=== PATIENT | male | born 1930 | race Caucasian/White ===

== ENCOUNTER 2016-04-06 15:00 | Outpatient (CLI) | payer BC, MEDICARE | END 2016-04-06 15:01 | disposition home or self-care (01) | DX: I48.0 Paroxysmal atrial fibrillation (principal) ==

== ENCOUNTER 2016-04-19 08:00 | Outpatient (CLI) | payer BC, MEDICARE | END 2016-04-19 08:01 | disposition home or self-care (01) | DX: I48.0 Paroxysmal atrial fibrillation (principal) ==

== ENCOUNTER 2016-05-04 15:22 | Outpatient (CLI) | payer BC, MEDICARE | END 2016-05-04 15:23 | disposition home or self-care (01) | DX: I48.0 Paroxysmal atrial fibrillation (principal) ==

== ENCOUNTER 2016-05-25 08:00 | Outpatient (CLI) | payer BC, MEDICARE | END 2016-05-25 08:01 | disposition home or self-care (01) | DX: I48.0 Paroxysmal atrial fibrillation (principal) ==

== ENCOUNTER 2016-06-01 12:41 | Outpatient (CLI) | payer BC, MEDICARE | END 2016-06-01 12:42 | disposition home or self-care (01) | DX: I10 Essential (primary) hypertension (principal); I42.7 Cardiomyopathy due to drug and external agent ==

== ENCOUNTER 2016-06-01 13:24 | Outpatient (CLI) | payer BC, MEDICARE | END 2016-06-01 13:25 | disposition home or self-care (01) | DX: J43.9 Emphysema, unspecified (principal); I51.7 Cardiomegaly; I10 Essential (primary) hypertension; I42.7 Cardiomyopathy due to drug and external agent ==

== ENCOUNTER 2016-06-02 13:37 | Outpatient (CLI) | payer BC, MEDICARE | END 2016-06-02 13:38 | disposition home or self-care (01) | DX: R17 Unspecified jaundice (principal); I48.0 Paroxysmal atrial fibrillation ==

== ENCOUNTER 2016-06-05 10:58 | Outpatient (CLI) | payer BC, MEDICARE | END 2016-06-05 10:59 | disposition home or self-care (01) | DX: K82.8 Other specified diseases of gallbladder (principal); R17 Unspecified jaundice ==

== ENCOUNTER 2016-06-22 12:35 | Outpatient (CLI) | payer BC, MEDICARE | END 2016-06-22 12:36 | disposition home or self-care (01) | DX: I48.0 Paroxysmal atrial fibrillation (principal); I10 Essential (primary) hypertension ==

== ENCOUNTER 2016-06-29 09:22 | Outpatient (CLI) | payer BC, MEDICARE | END 2016-06-29 09:23 | disposition home or self-care (01) | DX: I48.0 Paroxysmal atrial fibrillation (principal) ==

== ENCOUNTER 2016-07-07 09:34 | Outpatient (CLI) | payer BC, MEDICARE | END 2016-07-07 09:35 | disposition home or self-care (01) | DX: I48.0 Paroxysmal atrial fibrillation (principal) ==

== ENCOUNTER 2016-07-18 09:48 | Outpatient (CLI) | payer BC, MEDICARE | END 2016-07-18 09:49 | disposition home or self-care (01) | DX: I48.0 Paroxysmal atrial fibrillation (principal) ==

== ENCOUNTER 2016-08-11 09:29 | Outpatient (CLI) | payer BC, MEDICARE | END 2016-08-11 09:30 | disposition home or self-care (01) | LOC: LAB.F 09:29 | PROVIDERS: ATTEND Internal Medicine Cardiovascular Disease | DX: I48.0 Paroxysmal atrial fibrillation (principal) | CPT/HCPCS: 85610 ==

== ENCOUNTER 2016-08-29 15:02 | Outpatient (CLI) | payer BC, MEDICARE | END 2016-08-29 15:03 | disposition home or self-care (01) | LOC: LAB.F 15:02 | PROVIDERS: ATTEND Internal Medicine Cardiovascular Disease | DX: I48.0 Paroxysmal atrial fibrillation (principal) | CPT/HCPCS: 85610 ==

== ENCOUNTER 2016-09-14 12:36 | Outpatient (CLI) | payer BC, MEDICARE | END 2016-09-14 12:37 | disposition home or self-care (01) | LOC: LAB.F 12:36 | PROVIDERS: ATTEND Internal Medicine Cardiovascular Disease | DX: I48.0 Paroxysmal atrial fibrillation (principal) | CPT/HCPCS: 85610 ==

== ENCOUNTER 2016-09-28 13:00 | Outpatient (CLI) | payer BC, MEDICARE | END 2016-09-28 13:01 | disposition home or self-care (01) | LOC: LAB.F 13:00 | PROVIDERS: ATTEND Physician Assistant | DX: I48.0 Paroxysmal atrial fibrillation (principal); I25.10 Atherosclerotic heart disease of native coronary artery without angina pectoris; I34.8 Other nonrheumatic mitral valve disorders | CPT/HCPCS: 85610 ==

== ENCOUNTER 2016-10-23 14:43 | Outpatient (CLI) | payer BC, MEDICARE | END 2016-10-23 14:44 | disposition home or self-care (01) | LOC: LAB.F 14:43 | PROVIDERS: ATTEND Physician Assistant | DX: I48.0 Paroxysmal atrial fibrillation (principal); I25.10 Atherosclerotic heart disease of native coronary artery without angina pectoris; I34.8 Other nonrheumatic mitral valve disorders | CPT/HCPCS: 85610 ==

== ENCOUNTER 2016-11-09 12:53 | Outpatient (CLI) | payer BC, MEDICARE | END 2016-11-09 12:54 | disposition home or self-care (01) | LOC: LAB.F 12:53 | PROVIDERS: ATTEND Physician Assistant | DX: I48.0 Paroxysmal atrial fibrillation (principal); I25.10 Atherosclerotic heart disease of native coronary artery without angina pectoris; I34.0 Nonrheumatic mitral (valve) insufficiency | CPT/HCPCS: 85610 ==

== ENCOUNTER 2016-12-05 11:11 | Outpatient (CLI) | payer BC, MEDICARE | END 2016-12-05 11:12 | disposition home or self-care (01) | LOC: LAB.F 11:11 | PROVIDERS: ATTEND Physician Assistant | DX: I48.0 Paroxysmal atrial fibrillation (principal); I25.10 Atherosclerotic heart disease of native coronary artery without angina pectoris; I34.8 Other nonrheumatic mitral valve disorders | CPT/HCPCS: 85610 ==

== ENCOUNTER 2016-12-11 17:16 | Outpatient (CLI) | payer BC, MEDICARE ==
--- NOTE | 2016-12-12 08:28 | XRAY Report ---
TWO-VIEW CHEST: 12/11/2016 CLINICAL INDICATION: Cough, shortness of breath. COMPARISON: 06/01/2016 FINDINGS: Frontal and lateral views of the chest demonstrate changes of previous cardiac surgery. T he cardiac silhouette is not enlarged. Calcified granulomas are present. The lungs are hyperinflate d, compatible with COPD. No new consolidation, effusion, or pneumothorax is evident. IMPRESSION: COPD AND POSTOPERATIVE CHANGES. NO EVIDENCE OF ACUTE CARDIOPULMONARY DISEASE. JOB #: [id number] EXT JOB #:[id number]
== END 2016-12-11 17:17 | disposition home or self-care (01) ==
LOC: DI 17:16
PROVIDERS: ATTEND Nurse Practitioner Family
DX: J44.9 Chronic obstructive pulmonary disease, unspecified (principal)
CPT/HCPCS: 71020

== ENCOUNTER 2016-12-27 13:25 | Outpatient (CLI) | payer BC, MEDICARE | END 2016-12-27 13:26 | disposition home or self-care (01) | LOC: LAB.F 13:25 | PROVIDERS: ATTEND Physician Assistant | DX: I48.0 Paroxysmal atrial fibrillation (principal); I25.10 Atherosclerotic heart disease of native coronary artery without angina pectoris; I34.8 Other nonrheumatic mitral valve disorders | CPT/HCPCS: 85610 ==

== ENCOUNTER 2017-01-02 10:49 | Outpatient (CLI) | payer BC, MEDICARE | END 2017-01-02 10:50 | disposition home or self-care (01) | LOC: LAB.F 10:49 | PROVIDERS: ATTEND Physician Assistant | DX: I48.0 Paroxysmal atrial fibrillation (principal); I25.10 Atherosclerotic heart disease of native coronary artery without angina pectoris; I34.8 Other nonrheumatic mitral valve disorders | CPT/HCPCS: 85610 ==

== ENCOUNTER 2017-01-11 14:47 | Outpatient (CLI) | payer MEDICARE, BC | END 2017-01-11 14:48 | disposition home or self-care (01) | LOC: LAB.F 14:47 | PROVIDERS: ATTEND Physician Assistant | DX: I48.0 Paroxysmal atrial fibrillation (principal); I25.10 Atherosclerotic heart disease of native coronary artery without angina pectoris; I34.8 Other nonrheumatic mitral valve disorders | CPT/HCPCS: 85610 ==

== ENCOUNTER 2017-01-31 12:29 | Outpatient (CLI) | payer BC, MEDICARE | END 2017-01-31 12:30 | disposition home or self-care (01) | LOC: LAB.F 12:29 | PROVIDERS: ATTEND Physician Assistant | DX: I48.0 Paroxysmal atrial fibrillation (principal); I25.10 Atherosclerotic heart disease of native coronary artery without angina pectoris; I34.8 Other nonrheumatic mitral valve disorders | CPT/HCPCS: 85610 ==

== ENCOUNTER 2017-02-15 13:02 | Outpatient (CLI) | payer BC, MEDICARE | END 2017-02-15 13:03 | disposition home or self-care (01) | LOC: LAB.F 13:02 | PROVIDERS: ATTEND Physician Assistant | DX: I48.0 Paroxysmal atrial fibrillation (principal); I25.10 Atherosclerotic heart disease of native coronary artery without angina pectoris; I34.8 Other nonrheumatic mitral valve disorders | CPT/HCPCS: 85610 ==

== ENCOUNTER 2017-03-08 14:09 | Outpatient (CLI) | payer BC, MEDICARE | END 2017-03-08 14:10 | disposition home or self-care (01) | LOC: LAB.F 14:09 | PROVIDERS: ATTEND Physician Assistant | DX: I48.0 Paroxysmal atrial fibrillation (principal); I25.10 Atherosclerotic heart disease of native coronary artery without angina pectoris; I34.8 Other nonrheumatic mitral valve disorders | CPT/HCPCS: 85610 ==

== ENCOUNTER 2017-03-13 13:29 | Outpatient (CLI) | payer BC, MEDICARE | END 2017-03-13 13:30 | disposition home or self-care (01) | LOC: LAB.F 13:29 | PROVIDERS: ATTEND Physician Assistant | DX: I48.0 Paroxysmal atrial fibrillation (principal); I25.10 Atherosclerotic heart disease of native coronary artery without angina pectoris; I34.8 Other nonrheumatic mitral valve disorders | CPT/HCPCS: 85610 ==

== ENCOUNTER 2017-03-22 14:10 | Outpatient (CLI) | payer BC, MEDICARE | END 2017-03-22 14:11 | disposition home or self-care (01) | LOC: LAB.F 14:10 | PROVIDERS: ATTEND Physician Assistant | DX: I48.0 Paroxysmal atrial fibrillation (principal); I25.10 Atherosclerotic heart disease of native coronary artery without angina pectoris; I34.8 Other nonrheumatic mitral valve disorders | CPT/HCPCS: 85610 ==

== ENCOUNTER 2017-04-06 09:22 | Outpatient (CLI) | payer BC, MEDICARE | END 2017-04-06 09:23 | disposition home or self-care (01) | LOC: LAB.F 09:22 | PROVIDERS: ATTEND Physician Assistant | DX: I48.0 Paroxysmal atrial fibrillation (principal); I25.10 Atherosclerotic heart disease of native coronary artery without angina pectoris; I34.8 Other nonrheumatic mitral valve disorders | CPT/HCPCS: 85610 ==

== ENCOUNTER 2017-04-12 10:09 | Outpatient (CLI) | payer BC, MEDICARE | END 2017-04-12 10:10 | disposition home or self-care (01) | LOC: LAB.F 10:09 | PROVIDERS: ATTEND Physician Assistant | DX: I48.0 Paroxysmal atrial fibrillation (principal); I25.10 Atherosclerotic heart disease of native coronary artery without angina pectoris; I34.8 Other nonrheumatic mitral valve disorders | CPT/HCPCS: 85610 ==

== ENCOUNTER 2017-04-12 14:57 | Outpatient (CLI) | payer BC, MEDICARE ==
--- NOTE | 2017-04-13 10:41 | XRAY Report ---
DATE OF SERVICE: 04/12/2017 THREE VIEW LEFT FOOT: 04/12/2017 CLINICAL INDICATION: Pain, swelling. FINDINGS: AP, lateral, and oblique views of the left foot demonstrate plantar calcaneal spurring. Soft tissue swelling is present, but there is no evidence of acute fracture or dislocation. No radiopaque foreign body is seen in the soft tissues. IMPRESSION: MILD DEGENERATIVE CHANGES. TD: 04/13/2017 11:40
== END 2017-04-12 14:58 | disposition home or self-care (01) ==
LOC: DI.S 14:57
PROVIDERS: ATTEND Physician Assistant
DX: M19.072 Primary osteoarthritis, left ankle and foot (principal)
CPT/HCPCS: 85610

== ENCOUNTER 2017-04-30 15:18 | Observation (INO) | payer BC, MEDICARE ==
[2017-04-30] MEDS ORDERED: SODIUM CHLORIDE 0.9% 1,000 ML IV ONE ×3 (15:46→16:21)
[2017-04-30 16:10] LABS: BASOPHILS % (AUTO) 0.3 %; HGB - HEMOGLOBIN 13.9 g/dL (14.0-18.0); LYMPHOCYTES % (AUTO) 6.3 %; MEAN CORPUSCULAR HEMOGLOBIN 33.9 pg (27.0-31.0); MEAN CORPUSCULAR VOLUME 102.7 fL (80.0-94.0); MEAN PLATELET VOLUME 7.7 fL (7.4-11.4); NEUTROPHILS # (AUTO) 14.3 10^3/uL (1.5-6.6); NEUTROPHILS % (AUTO) 87.4 %; PLT - PLATELET COUNT 214 10^3/uL (130-450); RED BLOOD COUNT 4.09 10^6/uL (4.70-6.10); RED CELL DISTRIBUTION WIDTH 14.4 % (12.0-15.0); WHITE BLOOD COUNT 16.3 x10^3/uL (4.8-10.8)
[2017-04-30 16:22] LABS: ALBUMIN 3.6 g/dL (3.2-5.5); ALBUMIN/GLOBULIN RATIO 1.3 (1.0-2.2); BILIRUBIN,TOTAL 1.1 mg/dL (0.2-1.0); CALCIUM 8.7 mg/dL (8.5-10.3); CREATININE 2.2 mg/dL (0.6-1.2); TOTAL PROTEIN 6.3 g/dL (6.7-8.2)
--- NOTE | 2017-04-30 16:24 | ED Physician Documentation ---
PD HPI FEVER - Stated complaint Stated Complaint: FEVER - Chief complaint Chief Complaint: Fever - History obtained from History obtained from: Patient, Family - History of Present Illness Timing - onset: Today Timing duration: Days (1) Timing details: Abrupt onset Pain level max: 0 Pain level now: 0 Associated symptoms: Chills, Rigors. No: Nasal congestion, Rhinorrhea, Sore throat, Dry cough, Hemoptysis, Chest pain, Dyspnea, Abdominal pain, NVD, Urinary symptoms Contributing factors: Other (received influenza and pneumonia shots this year). No: Sick contact, Immunocompromised, Unimmunized Similar symptoms before: Diagnosis (had a CBD stone a few years ago with high fever) Recently seen: Not recently seen Review of Systems Ten Systems: 10 systems reviewed and negative Constitutional: reports: Fever, Chills Ears: denies: Ear pain Nose: denies: Rhinorrhea / runny nose, Congestion Throat: denies: Sore throat Cardiac: denies: Chest pain / pressure Respiratory: denies: Dyspnea, Cough, Hemoptysis, Wheezing GI: denies: Abdominal Pain, Nausea, Vomiting, Diarrhea : denies: Dysuria Skin: denies: Rash Musculoskeletal: denies: Neck pain, Back pain Neurologic: denies: Generalized weakness, Focal weakness, Numbness, Confused, Altered mental status, Headache PD PAST MEDICAL HISTORY - Past Medical History Past Medical History: Yes Cardiovascular: PA, Valve disorder GI: Cholelithiasis - Past Surgical History Past Surgical History: Yes General: Appendectomy Cardiovascular: Coronary stent, Valve replacement, Angioplasty - Present Medications Home Medications: Ambulatory Orders Medication Instructions Recorded Confirmed Aspirin [Aspir 81] 81 mg PO DAILY 07/29/13 04/30/17 Benzonatate [Tessalon Perle] 100 mg PO Q6HR PRN 07/29/13 04/30/17 Carvedilol [Coreg] 6.25 mg PO BID 07/29/13 04/30/17 Dronedarone HCl [Multaq] 400 mg PO BID 07/29/13 04/30/17 Furosemide [Lasix] 20 mg PO DAILY 07/29/13 04/30/17 Isosorbide Mononitrate ER [Imdur] 30 mg PO DAILY 07/29/13 04/30/17 Potassium Chloride [Micro-K] 20 meq PO DAILY 07/29/13 04/30/17 Warfarin Sodium [Coumadin] 2 mg PO DAILY PM 07/29/13 04/30/17 Allopurinol 100 mg PO DAILY PM 04/30/17 04/30/17 Warfarin Sodium [Coumadin] 3 mg PO DAILY PM 04/30/17 04/30/17 busPIRone [Buspar] 5 mg PO BID 04/30/17 04/30/17 - Allergies Allergies/Adverse Reactions: Allergies Allergy/AdvReac Type Severity Reaction Status Date / Time Benzodiazepines Allergy Unknown Verified 04/30/17 15:39 levofloxacin Allergy Hives Verified 07/29/13 15:04 zolpidem tartrate * Allergy Hallucinati Verified 07/29/13 15:04 [From Ambien] ons - Social History Does the pt smoke?: No Smoking Status: Never smoker Does the pt drink ETOH?: No Does the pt have substance abuse?: No - Immunizations Immunizations are current?: Yes - POLST Patient has POLST: No PD ED PE NORMAL - Vitals Vital signs reviewed: Yes - General General: Alert and oriented X 3, No acute distress, Well developed/nourished - HEENT HEENT: PERRL, Ears normal, Moist mucous membranes, Pharynx benign - Neck Neck: Supple, no meningeal sign - Cardiac Cardiac: RRR, Strong equal pulses - Respiratory Respiratory: No respiratory distress, Clear bilaterally - Abdomen Abdomen: Soft, Non tender, Non distended - Back Back: No CVA TTP, No spinal TTP - Derm Derm: Warm and dry, No rash - Extremities Extremities: No edema, No calf tenderness / cord - Neuro Neuro: Alert and oriented X 3 - Psych Psych: Normal mood, Normal affect Results - Vitals Vitals: Vital Signs - 24 hr 04/30/17 04/30/17 04/30/17 15:29 16:07 16:35 Temperature 36.9 C Heart Rate 68 75 69 Heart Rate [ Standing] Respiratory 20 18 16 Rate Blood Pressure 91/45 L 91/54 L 99/60 Blood Pressure [Standing] O2 Saturation 97 95 97 04/30/17 04/30/17 04/30/17 16:59 17:50 17:57 Temperature Heart Rate 67 66 Heart Rate [ 84 Standing] Respiratory 17 16 Rate Blood Pressure 104/67 105/59 L Blood Pressure 109/76 [Standing] O2 Saturation 97 97 04/30/17 19:06 Temperature 36.6 C Heart Rate 68 Heart Rate [ Standing] Respiratory 16 Rate Blood Pressure 118/67 Blood Pressure [Standing] O2 Saturation 98 Oxygen O2 Source Room air - Labs Labs: Laboratory Tests 04/30/17 04/30/17 04/30/17 15:50 15:50 15:50 WBC 16.3 H RBC 4.09 L Hgb 13.9 L Hct 42.0 MCV 102.7 H MCH 33.9 H MCHC 33.0 RDW 14.4 Plt Count 214 MPV 7.7 Neut # 14.3 H Lymph # 1.0 L [place] # 1.0 Eos # 0.0 Baso # 0.0 Absolute Nucleated RBC 0.00 Nucleated RBC % 0.0 PT INR Sodium 135 Potassium 4.8 Chloride 100 L Carbon Dioxide 23 Anion Gap 12.0 BUN 31 H Creatinine 2.2 H Estimated GFR (MDRD) 28 L Glucose 136 H Lactic Acid 2.0 Uric Acid Calcium 8.7 Total Bilirubin 1.1 H AST 23 ALT 20 Alkaline Phosphatase 68 Total Protein 6.3 L Albumin 3.6 Globulin 2.7 Albumin/Globulin Ratio 1.3 Lipase 18 L Urine Color Urine Clarity Urine pH Ur Specific [place] Urine Protein Urine Glucose (UA) Urine Ketones Urine Occult Blood Urine Nitrite Urine Bilirubin Urine Urobilinogen Ur Leukocyte Esterase Ur Microscopic Review Urine Culture Comments Influenza A (Rapid) Influenza B (Rapid) Influenza Types A,B Ag 04/30/17 04/30/17 04/30/17 15:50 15:50 16:35 WBC RBC Hgb Hct MCV MCH MCHC RDW Plt Count MPV Neut # Lymph # [place] # Eos # Baso # Absolute Nucleated RBC Nucleated RBC % PT 23.4 H INR 2.1 H Sodium Potassium Chloride Carbon Dioxide Anion Gap BUN Creatinine Estimated GFR (MDRD) Glucose Lactic Acid Uric Acid 7.4 H Calcium Total Bilirubin AST ALT Alkaline Phosphatase Total Protein Albumin Globulin Albumin/Globulin Ratio Lipase Urine Color Urine Clarity Urine pH Ur Specific [place] Urine Protein Urine Glucose (UA) Urine Ketones Urine Occult Blood Urine Nitrite Urine Bilirubin Urine Urobilinogen Ur Leukocyte Esterase Ur Microscopic Review Urine Culture Comments Influenza A (Rapid) Negative Influenza B (Rapid) Negative Influenza Types A,B Ag - 04/30/17 17:15 WBC RBC Hgb Hct MCV MCH MCHC RDW Plt Count MPV Neut # Lymph # [place] # Eos # Baso # Absolute Nucleated RBC Nucleated RBC % PT INR Sodium Potassium Chloride Carbon Dioxide Anion Gap BUN Creatinine Estimated GFR (MDRD) Glucose Lactic Acid Uric Acid Calcium Total Bilirubin AST ALT Alkaline Phosphatase Total Protein Albumin Globulin Albumin/Globulin Ratio Lipase Urine Color YELLOW Urine Clarity CLEAR Urine pH 6.0 Ur Specific [place] 1.015 Urine Protein NEGATIVE Urine Glucose (UA) NEGATIVE Urine Ketones NEGATIVE Urine Occult Blood NEGATIVE Urine Nitrite NEGATIVE Urine Bilirubin NEGATIVE Urine Urobilinogen 0.2 (NORMAL) Ur Leukocyte Esterase NEGATIVE Ur Microscopic Review NOT INDICATED Urine Culture Comments NOT INDICATED Influenza A (Rapid) Influenza B (Rapid) Influenza Types A,B Ag - Rads (name of study) cxr Radiology: Prelim report reviewed, EMP read contemporaneously, See rad report ( No acute disease) PD MEDICAL DECISION MAKING - ED course Complexity details: reviewed results, re-evaluated patient, considered differential, d/w patient, d/w family, d/w senior professional services consultant ED course: Patient is an 86-year-old male who presents to the emergency department with a fever today at home, this is accompanied by significant hypotension in the emergency department. This was fluid responsive. Significant leukocytosis and borderline high lactate. Blood cultures were drawn. He initially wanted to leave AGAINST MEDICAL ADVICE therefore Rocephin and vancomycin were used. He then changed his mind and decided he would stay in the hospital for observation. We will continue IV fluids and antibiotics. Unclear etiology of his symptoms, possible viral infection? Possible septicemia? Discussed the case with the hospitalist who accepts. This document was made in part using voice recognition software. While efforts are made to proofread this document, sound alike and grammatical errors may occur. Departure - Departure Disposition: ED Place in Observation Clinical Impression: Fever Qualifiers: Fever type: unspecified Qualified Code(s): R50.9 - Fever, unspecified Hypotension Qualifiers: Hypotension type: unspecified hypotension type Qualified Code(s): I95.9 - Hypotension, unspecified Condition: Stable Discharge Date/Time: 04/30/17 19:55
--- NOTE | 2017-04-30 17:11 | XRAY Preliminary Report ---
Exam: XR CHEST 2 VIEW X-RAY IMPRESSION: 1. Moderate cardiomegaly. 2. Chronic lung disease. [facility] SITE ID: [id number]
--- NOTE | 2017-04-30 17:20 | XRAY Report ---
EXAM: CHEST RADIOGRAPHY EXAM DATE: 04/30/2017 04:56 PM. CLINICAL HISTORY: Fever. COMPARISON: 12/11/2016. TECHNIQUE: 2 views. FINDINGS: Lungs/Pleura: Overexpanded. No consolidation, effusion, vascular congestion nor pneumothorax. Small c alcified granulomata. Mediastinum: Prior sternotomy. Stable moderate cardiomegaly. No adenopathy. Other: None. IMPRESSION: 1. Moderate cardiomegaly. 2. Chronic lung disease. [facility] Referring Provider Line: [phone] SITE ID: [id number]
[2017-04-30 17:49] LABS: BILIRUBIN,URINE NEGATIVE (NEGATIVE); CLARITY,URINE CLEAR (CLEAR); GLUCOSE, URINE (UA) NEGATIVE (NEGATIVE); KETONES,URINE (UA) NEGATIVE (NEGATIVE); LEUKOCYTE ESTERASE, URINE NEGATIVE (NEGATIVE); NITRITE,URINE NEGATIVE (NEGATIVE); OCCULT BLOOD,URINE NEGATIVE (NEGATIVE); PROTEIN,URINE NEGATIVE (NEGATIVE); UROBILINOGEN,URINE 0.2 (NORMAL) E.U./dL (NORMAL)
[2017-04-30 18:07] LABS: INR 2.1 (0.8-1.2); PT - PROTHROMBIN TIME 23.4 secs (9.9-12.6)
[2017-04-30] MEDS ORDERED: cefTRIAXone 1 GM VIAL IVP STA (18:27)
[2017-04-30] MEDS ORDERED: VANCOMYCIN INJ 1 GM in SODIUM CHLORIDE 0.9% 250 ML IV STA (18:27)
[2017-04-30] MEDS ORDERED: ACETAMINOPHEN 325 MG TABLET PO PRN (19:47)
[2017-04-30] MEDS ORDERED: HYDROcod/ACETAM 5/325 MG TABLET PO PRN (19:47)
[2017-04-30] MEDS ORDERED: SODIUM CHLORIDE FLUSH 0.9% 10 ML SYRINGE IVP PRN (19:47)
[2017-04-30] MEDS ORDERED: ONDANSETRON 4 MG/2 ML VIAL IVP PRN (19:47)
[2017-04-30] MEDS ORDERED: BENZONATATE 100 MG CAPSULE PO PRN (22:04)
[2017-04-30] MEDS ORDERED: NON FORMULARY MED (Dronedarone Hcl [Multaq] 400 MG) PO SCH (22:15)
[2017-04-30] MEDS: SODIUM CHLORIDE FLUSH 0.9% 10 ML SYRINGE IVP SCH (22:19)
[2017-04-30] MEDS: CARVEDILOL 3.125 MG TABLET PO SCH (22:43)
[2017-04-30] MEDS: busPIRone 5 MG TABLET PO SCH (22:43)
--- NOTE | 2017-04-30 22:58 | Ultrasound Report ---
EXAM: LEFT LOWER EXTREMITY VENOUS ULTRASOUND EXAM DATE: 04/30/2017 10:46 PM. CLINICAL HISTORY: Dvt. Left leg swelling. COMPARISON: None. TECHNIQUE: Real-time sonographic vascular imaging was performed by the collet driller through the lower extremity utilizing both color-flow and Doppler spectral analysis. Multiple vendor representatives static gasper ges were saved for review. FINDINGS: Common Femoral Vein (CFV): Normal. CFV-GSV Junction: Normal. Profunda Femoral Vein (PFV): Normal. Femoral Vein (FV) Prox: Normal. Femoral Vein (FV) Mid: Normal. Femoral Vein (FV) Dist: Normal. Popliteal Vein: Normal. Posterior Tibial Veins: Normal. Peroneal Veins: Normal. Small pocket of fluid seen at the left lateral knee, could represent a knee joint effusion, measures 1.2 x 0.7 x 0.8 cm. IMPRESSION: No evidence for deep venous thrombosis. Small pocket of fluid seen at the left lateral kn ee, could represent a knee joint effusion, measures 1.2 x 0.7 x 0.8 cm. ELIZABETH Referring Provider Line: [phone] SITE ID: [id number]
--- NOTE | 2017-04-30 22:58 | Ultrasound Preliminary Report ---
Exam: US DUPLEX EXT VEINS LEFT IMPRESSION: No evidence for deep venous thrombosis. Small pocket of fluid seen at the left lateral kn ee, could represent a knee joint effusion, measures 1.2 x 0.7 x 0.8 cm. [facility] SITE ID: [id number]
[2017-04-30] MEDS ORDERED: ALLOPURINOL 100 MG TABLET PO SCH (23:00)
[2017-04-30] MEDS ORDERED: WARFARIN 1 MG TABLET PO SCH (23:02)
[2017-04-30] MEDS ORDERED: WARFARIN SODIUM 3 MG PO SCH (23:03)
--- NOTE | 2017-05-01 04:16 | HISTORY & PHYSICAL EXAMINATION ---
DATE OF SERVICE: 04/30/2017 Physician: Nemo Florian MD PRIMARY CARE PHYSICIAN: Becca Palmer CHIEF COMPLAINT: Fever and rigors. SOURCE OF HISTORY: The patient preferred that his , Dhara, provided history. Additional details obtained reviewing medical record and getting sign out from the ER. HISTORY OF PRESENT ILLNESS: The patient is an 86-year-old, white male with past medical history of mitral valve replacement with bioprosthetic valve, with history of atrial fibrillation on Coumadin anticoagulation, with history of chronic renal insufficiency, hypertension, gout and dyslipidemia. He was in his usual state of health up to the morning of April 30, at which time he developed rigors and high fever. His fever was 102 at home. He felt somewhat acutely ill, but other than the fever, feeling of generalized illness and rigors, he had no focal complaints. In particular, there was no chest pain, shortness of breath, nausea, vomiting, diarrhea, abdominal pain, cough or any additional symptoms. The patient was due to have his INR checked on the current day. Therefore, his , Dhara, contacted the primary care provider, Becca Palmer, and informed the office that the patient will not be able to go in for an INR check due to his illness and fever. Given that he has multiple medical problems and is status post a valve replacement, fever was felt to be a worrisome problem and the was instructed to bring the patient to the ER. Interviewing the further, she reports that recently there was an issue with left lower extremity swelling, which was unilateral. The patient had outpatient x-rays which did not show any fracture or injury. It was felt that the patient likely had gout and he was given a short prednisone course. It is notable, however, that there was never redness/erythema, warmth or inflammatory sign on the lower extremity, and it seemed more of an edema like swelling, rather than focal joint involvement. In any case, it was felt to be gout. I do not have information on further detail. Upon presentation to the ER, the patient was hypotensive. His initial blood pressure was 80/40. He received 2 liters normal saline, after which his blood pressure increased to 110. His ER workup was grossly unremarkable which included negative urinalysis, negative influenza screen, and unremarkable chest x-ray. The chest x-ray showed cardiomegaly and chronic lung disease. No acute abnormality. Notably, creatinine was 2.2, which is in line with the patient's baseline renal function. White blood cell count was elevated at 16.3 ; however, as mentioned above, the patient recently was on prednisone. INR was therapeutic at 2.1. Liver function tests were unremarkable. Blood glucose was 136. Lactic acid was 2.1. At the ER, the patient received empiric antibiotic coverage with ceftriaxone and vancomycin. Blood cultures were sent and observation stay was requested with concern for possible bacteremia in the setting of history of mitral valve replacement. REVIEW OF SYMPTOMS: I completed 12-point review and, other than the symptoms listed at history of present illness, there was no additional complaint. In particular, the reported no history of cancer, No history of central line placement, and no history of recent hospital stay. Regarding the mitral valve, it is a bioprosthetic valve, which was placed in 2008 and, since then, there were no complication with the valve. The patient usually takes prophylactic antibiotic when he goes for a dental procedure, and he did have teeth cleaning several months ago. Other pertinent negatives are listed at history of present illness as well. FAMILY HISTORY: Reviewed, noncontributory to current presentation. 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 He is well known in [place], but has been living in [facility] since the early . He is to Dhara for 36 years. It is quite a romantic story, and the patient explains with a sense of humor that Dhara is actually his 8th . The patient is a nonsmoker and a nondrinker. He is functional with activities of daily living, although Dhara, his , tells me that the patient does have memory problems. PAST MEDICAL HISTORY 1. Mitral valve replacement with bioprosthetic valve in 2008. 2. Atrial fibrillation, on Coumadin anticoagulation, rate control with Multaq and carvedilol. 3. Chronic renal insufficiency with creatinine baseline around 2. 4. Dyslipidemia. 5. Hypertension. 6. History of gallstone pancreatitis, which required prolonged hospitalization and ICU stay. 7. History of gout, recently had been on prednisone and was given allopurinol. ALLERGIES 1. BENZODIAZEPINE. 2. LEVAQUIN. 3. AMBIEN. 4. QUESTIONABLE ALLERGY TO DENICE INHIBITOR. THE PATIENT HAD AN ER VISIT, BUT DENICE INHIBITOR IS NOT OFFICIALLY LISTED. CODE STATUS: DO NOT RESUSCITATE, which was confirmed by the patient's , Dhara. OUTPATIENT MEDICATIONS Current medication list is still getting reconciled. What I can see from the medical record is that the patient was on: 1. Warfarin. 2. Potassium supplements. 3. Furosemide. 4. Isosorbide. 5. Multaq. 6. Carvedilol. 7. Aspirin. 8. Plus he had been on prednisone and allopurinol recently. PHYSICAL EXAMINATION VITAL SIGNS: Temperature 37 Celsius, heart rate in the 60s, blood pressure 100/ 60, respiratory rate 18, oxygen saturation 98% on room air. GENERAL: The patient is a well-developed, well-nourished male, who is not in distress. CARDIOVASCULAR: S1, S2, regular. No murmur, rub or gallop. RESPIRATORY: Clear to auscultation without wheezes or crackles. No increased work of breathing. ABDOMEN: Slightly distended, but nontender. No rebound, no guarding. Bowel tones heard. LYMPHATIC: There was swelling and pitting edema on the left lower extremity between the ankle and the mid maloney. It was unilateral. MUSCULOSKELETAL: Atraumatic. SKIN: No jaundice, no pallor. NEUROLOGIC: Alert, oriented, nonfocal. PSYCHIATRIC: Cooperative. ASSESSMENT/ACTIVE ISSUE/DIAGNOSES 1. Fever and rigors. Most likely the patient has a viral illness. His ER workup was negative for focal infection. Given the fact that he was hypotensive initially and required 2 liters IV fluid, possibility of sepsis and bacteremia was entertained. The patient's risk factors include a bioprosthetic mitral valve. Considering septic physiology, he is on beta ynes and on Multaq for atrial fibrillation. Therefore, he did not mount a tachycardic response. In any case, it is possible that he is septic, although, per my impression, this would be less likely. It is also possible that the patient had a transient hypotensive episode in the setting of fever, acute illness and dehydration. Notably, he takes Lasix and that could contribute to volume depletion as well. In any case, regarding this problem, the patient is getting admitted under observation. He was covered with antibiotics, including ceftriaxone and vancomycin, which would cover for 24 hours while blood cultures are pending. At this point, I did not see enough evidence to continue the antibiotics. I would wait for the pending blood cultures to result. 2. Leukocytosis. Elevated white blood cell count could be reactive from recent prednisone use plus/minus related to sepsis. 3. Unilateral left lower extremity swelling without inflammatory signs. It was felt to be gout. It is possible there was inflammation earlier which already resolved on prednisone. In any case, I added uric acid to laboratory workup and I will check ultrasound of the left lower extremity to make sure there is no DVT. 4. Atrial fibrillation, rate controlled, on Coumadin anticoagulation with therapeutic INR. We will continue home medications and I am currently waiting for the confirmation of doses and frequencies of home medications. 5. Chronic renal insufficiency, creatinine at baseline; however, the patient appeared euvolemic versus slightly hypovolemic. He already received 2 liters IV fluid in the ER and I will hold Lasix until the blood pressure will start going up. 6. Deep venous thrombosis prophylaxis not needed as the patient is therapeutically anticoagulated on Coumadin. PLAN AND ORDERS 1. The patient is referred for observation status. He is getting monitored. Blood cultures were taken and currently pending. Empiric antibiotics were already given and, if blood cultures return positive, antibiotics will be continued. 2. Ordered morning laboratories including repeat CBC, chemistry panel. 3. Ultrasound of the lower extremities to rule out DVT. 4. Further plan will depend on the clinical course. DISPOSITION: I certify that this patient is expected to stay in the hospital for about 24-48 hours. Therefore, he is referred for observation. If his blood cultures turn positive and his hospital workup would suggest bacteremia, then he will be upgraded to inpatient status. Time spent in the care of this patient was 60 minutes. TD: 05/01/2017 04:15 HONG
[2017-05-01] MEDS ORDERED: WARFARIN 1 MG TABLET PO SCH ×4 (05:42→21:00)
[2017-05-01] MEDS ORDERED: WARFARIN SODIUM 3 MG PO SCH ×2 (05:43→09:00)
[2017-05-01 06:38] LABS: BASOPHILS % (AUTO) 0.3 %; EOSINOPHILS # (AUTO) 0.2 10^3/uL (0.0-0.7); EOSINOPHILS % (AUTO) 2.5 %; HGB - HEMOGLOBIN 12.3 g/dL (14.0-18.0); LYMPHOCYTES # (AUTO) 1.3 10^3/uL (1.5-3.5); LYMPHOCYTES % (AUTO) 13.9 %; MEAN CORPUSCULAR HEMOGLOBIN 34.7 pg (27.0-31.0); MEAN CORPUSCULAR HGB CONC 33.7 g/dL (32.0-36.0); MEAN CORPUSCULAR VOLUME 103.1 fL (80.0-94.0); MEAN PLATELET VOLUME 7.9 fL (7.4-11.4); MONOCYTES % (AUTO) 10.3 %; PLT - PLATELET COUNT 167 10^3/uL (130-450); RED BLOOD COUNT 3.54 10^6/uL (4.70-6.10); WHITE BLOOD COUNT 9.6 x10^3/uL (4.8-10.8)
[2017-05-01 06:48] LABS: CALCIUM 8.1 mg/dL (8.5-10.3)
[2017-05-01] MEDS ORDERED: DRONEDARONE HCL 400 MG PO SCH (06:52)
[2017-05-01] MEDS: SODIUM CHLORIDE FLUSH 0.9% 10 ML SYRINGE IVP SCH (07:30)
[2017-05-01 07:38] VITALS: BP 106/41
--- NOTE | 2017-05-01 08:49 | Discharge Plan ---
Discharge Plan Disposition: 01 Home, Self Care Condition: Good Diet: Cardiac Activity Restrictions: No Restrictions Shower Restrictions: No Driving Restrictions: No Weight Bearing: Full Weight Additional Instructions or Follow Up instructions: You were monitored on observation overnight due to hypotension (low blood pressures) and an elevated WBC count. Also your kidney lab results indicated that you may be dehydrated. You were given fluids, which were discontinued this morning. You were watched on telemetry, which was was a sinus rhythm in the 56-60's. Around 0546AM you were noted to have around 38 beats of a wide complex idioventricular accelerated rhythm, but nothing since. You had an ultrasound was completed to your left lower extremity. This was negative for blood clots, but did show a very small pocket of fluid that measures 1.2 x 0.7 x 0.8 cm (about like 2 grains of rice). I noticed no swelling or redness, so not a concerning. There are still blood cultures that are pending. Expect a call from me personally if these show anything concerning. An echocardiogram is on hold as per Dr. Reyes's recommendations. Please resume all of your normal medications. Your last INR was 2.1. Rest if you are tired and keep playing your piano. No Smoking: If you smoke, Please STOP! Call for help. Follow-up with: Becca Palmer PA [Primary Care Provider] -
--- NOTE | 2017-05-01 08:53 | DISCHARGE SUMMARY ---
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 Hypotension (I95.9) resolved. Leukocytosis (D72.829) resolved. History of mitral valve replacement with bioprosthetic valve (Z95.3) chronic, stable. - HPI History of Present Illness: Nicolas Caicedo is an elderly 86-year old white male with a past medical history of bovine mitral valve replacement, atrial fibrillation on Coumadin, chronic renal insufficiency, hypertension, gout, and dyslipidemia. He was in his usual state of health up to the morning of April 30, at which time he developed rigors and a high fever (reported as 102). He felt somewhat ill, but other than the fever, feeling of generalized illness and rigors, he had no focal complaints. In particular, there was no chest pain, shortness of breath, nausea, vomiting, diarrhea, abdominal pain, cough or any additional symptoms. The patient was due to have his INR checked, but PCP suggested that patient come to the ED. The fever was more worrisome given his multiple medical problems, including prosthetic valve. Once the patient was in the ED, the patient was noted to be hypotensive, with a blood pressure of 80/40. He was given 2 Ls of NS and his B/ P normalized to a systolic of 110. His ED workup was grossly unremarkable which included a negative UA, negative flu swabs, and an unremarkable chest x- ray. His creatinine was slightly elevated at 2.2, but was within baseline for the patient. The elevation in WBCs may be explained by his recent prednisone taper. The patient received IV empiric antibiotic coverage with ceftriaxone and vancomycin. Blood cultures were obtained-results pending. Patient will be monitored overnight a placed on observation status for further telemetry monitoring, IVFs, labratory monitoring and a possible echocardiogram. - HOSPITAL COURSE Hospital Course: The patient had a non-eventful night and claims to have slept well, with his in the cot near the bedside. His telemetry monitoring showed a sinus rhythm with a first degree heart block and around 0546 there was a 38 beat of wide complex idioventricular accelerated beats. Patient remained asymptomatic, laboratory results improved and his knee effusion found on ultrasound showed no evidence of infection or injury. Patient was very anxious to get home and was irritated to have spent even one night at the hospital. His , Dang reports that she texted the patient's content management consultant Dr. Reyes who did not recommend an echocardiogram, so this was cancelled and discharge orders were written. The patient was discharged in stable, good condition and had no oxygen needs. He ate a good breakfast and was ambulatory. - ALLERGIES Allergies/Adverse Reactions: Allergies Allergy/AdvReac Type Severity Reaction Status Date / Time Benzodiazepines Allergy Unknown Verified 04/30/17 15:39 levofloxacin Allergy Hives Verified 07/29/13 15:04 zolpidem tartrate * Allergy Hallucinati Verified 07/29/13 15:04 [facility] - MEDICATIONS Home Medications: Ambulatory Orders Medication Instructions Recorded Confirmed Aspirin [Aspir 81] 81 mg PO DAILY 07/29/13 04/30/17 Benzonatate [Tessalon Perle] 100 mg PO Q6HR PRN 07/29/13 04/30/17 Carvedilol [Coreg] 6.25 mg PO BID 07/29/13 04/30/17 Dronedarone HCl [Multaq] 400 mg PO BID 07/29/13 04/30/17 Furosemide [Lasix] 20 mg PO DAILY 07/29/13 04/30/17 Isosorbide Mononitrate ER [Imdur] 30 mg PO DAILY 07/29/13 04/30/17 Potassium Chloride [Micro-K] 20 meq PO DAILY 07/29/13 04/30/17 Warfarin Sodium [Coumadin] 2 mg PO DAILY PM 07/29/13 04/30/17 Allopurinol 100 mg PO DAILY PM 04/30/17 04/30/17 Warfarin Sodium [Coumadin] 3 mg PO DAILY PM 04/30/17 04/30/17 busPIRone [Buspar] 5 mg PO BID 04/30/17 04/30/17 - PHYSICAL EXAM AT DISCHARGE General Appearance: positive: No acute distress, Alert Eyes Bilateral: positive: Normal inspection ENT: positive: ENT inspection nml, Pharynx nml, No signs of dehydration Neck: positive: Nml inspection, Thyroid nml, No JVD, Trachea midline Respiratory: positive: Chest non-tender, No respiratory distress, Breath sounds nml Cardiovascular: positive: No gallop, Irregularly irregular, Systolic murmur, Decreased pulse(s) Peripheral Pulses: positive: 1+ Abdomen: positive: Non-tender, Nml bowel sounds, Guarding, Hepatomegaly, Other ( obese, soft) Back: positive: Nml inspection Skin: positive: No rash, Warm, Dry Extremities: positive: Non-tender, Full ROM, Nml appearance, No pedal edema, Other (no redness or tenderness noted on BLE) Neurologic/Psychiatric: positive: Oriented x3, CN's nml (2-12), Motor nml, Sensation nml, Mood/affect nml, Other ([place] Reflexes: Bicep (R): 3+, Bicep (L): 3+ - LABS Result Diagrams: 05/01/17 06:18 05/01/17 06:18 - DIAGNOSTIC IMAGING Diagnostic Imaging Results: Final report reviewed Diagnostic Imaging Results Comments: EXAM: LEFT LOWER EXTREMITY VENOUS ULTRASOUND EXAM DATE: 04/30/2017 10:46 PM. CLINICAL HISTORY: Dvt. Left leg swelling. COMPARISON: None. TECHNIQUE: Real-time sonographic vascular imaging was performed by the shoe polisher through the lower extremity utilizing both color-flow and Doppler spectral analysis. Multiple fundraising sale representative static images were saved for review. FINDINGS: Common Femoral Vein (CFV): Normal. CFV-GSV Junction: Normal. Profunda Femoral Vein (PFV): Normal. Femoral Vein (FV) Prox: Normal. Femoral Vein (FV) Mid: Normal. Femoral Vein (FV) Dist: Normal. Popliteal Vein: Normal. Posterior Tibial Veins: Normal. Peroneal Veins: Normal. Small pocket of fluid seen at the left lateral knee, could represent a knee joint effusion, measures 1.2 x 0.7 x 0.8 cm. IMPRESSION: No evidence for deep venous thrombosis. Small pocket of fluid seen at the left lateral knee, could represent a knee joint effusion, measures 1.2 x 0.7 x 0.8 cm. EXAM: CHEST RADIOGRAPHY EXAM DATE: 04/30/2017 04:56 PM. CLINICAL HISTORY: Fever. COMPARISON: 12/11/2016. TECHNIQUE: 2 views. FINDINGS: Lungs/Pleura: Overexpanded. No consolidation, effusion, vascular congestion nor pneumothorax. Small calcified granulomata. Mediastinum: Prior sternotomy. Stable moderate cardiomegaly. No adenopathy. Other: None. IMPRESSION: 1. Moderate cardiomegaly. 2. Chronic lung disease. - FOLLOW UP Follow Up: Disposition: 01 Home, Self Care Condition: Good Diet: Cardiac Activity Restrictions: No Restrictions Shower Restrictions: No Driving Restrictions: No Weight Bearing: Full Weight Additional Instructions or Follow Up instructions: You were monitored on observation overnight due to hypotension (low blood pressures) and an elevated WBC count. Also your kidney lab results indicated that you may be dehydrated. You were given fluids, which were discontinued this morning. You were watched on telemetry, which was was a sinus rhythm in the 56-60's. Around 0546AM you were noted to have around 38 beats of a wide complex idioventricular accelerated rhythm, but nothing since. You had an ultrasound was completed to your left lower extremity. This was negative for blood clots, but did show a very small pocket of fluid that measures 1.2 x 0.7 x 0.8 cm (about like 2 grains of rice). I noticed no swelling or redness, so not a concerning. There are still blood cultures that are pending. Expect a call from me personally if these show anything concerning. An echocardiogram is on hold as per Dr. Reyes's recommendations. Please resume all of your normal medications. Your last INR was 2.1. Rest if you are tired and keep playing your piano. - TIME SPENT Time Spent in Discharge (Minutes): 30
[2017-05-01] MEDS ORDERED: POTASSIUM CHLORIDE 10 MEQ CAPSULE PO SCH (09:00)
[2017-05-01] MEDS ORDERED: ISOSORBIDE MONONITRATE ER 30 MG TABLET PO SCH (09:00)
[2017-05-01] MEDS ORDERED: POLYETHYLENE GLYCOL 3350 17 GM PACKET PO SCH (09:00)
[2017-05-01] MEDS ORDERED: FUROSEMIDE 40 MG TABLET PO SCH (09:00)
[2017-05-01] MEDS ORDERED: ASPIRIN EC 81 MG TABLET PO SCH (09:00)
[2017-05-01] MEDS: busPIRone 5 MG TABLET PO SCH (09:01)
[2017-05-01] MEDS: CARVEDILOL 3.125 MG TABLET PO SCH (09:02)
== END 2017-05-01 10:00 | disposition home or self-care (01) ==
LOC: ED 15:18 → OBS 19:47
PROVIDERS: ADMIT Internal Medicine; ATTEND Nurse Practitioner
DX: R50.9 Fever, unspecified (principal); I95.9 Hypotension, unspecified; D72.829 Elevated white blood cell count, unspecified; M25.462 Effusion, left knee; I13.10 Hypertensive heart and chronic kidney disease without heart failure, with stage 1 through stage 4 chronic kidney disease, or unspecified chronic kidney disease; N18.9 Chronic kidney disease, unspecified; I48.91 Unspecified atrial fibrillation; E78.5 Hyperlipidemia, unspecified; M10.9 Gout, unspecified; I44.0 Atrioventricular block, first degree; I25.2 Old myocardial infarction; Z95.3 Presence of xenogenic heart valve; Z95.5 Presence of coronary angioplasty implant and graft; Z79.82 Long term (current) use of aspirin; Z79.01 Long term (current) use of anticoagulants; Z66 Do not resuscitate; Z79.899 Other long term (current) drug therapy
CPT/HCPCS: 36415; 71046; 80048; 80053; 81003; 83605; 83690; 84550; 85025; 85610; 87040; 87275; 87276; 93971; 96365; 96375; 99285; A9270; G0378; J3370; 81001; 87086; 99284

== ENCOUNTER 2017-06-01 09:54 | Outpatient (CLI) | payer BC, MEDICARE | END 2017-06-01 09:55 | disposition home or self-care (01) | LOC: LAB.F 09:54 | PROVIDERS: ATTEND Physician Assistant | DX: I48.0 Paroxysmal atrial fibrillation (principal); I25.10 Atherosclerotic heart disease of native coronary artery without angina pectoris; I34.8 Other nonrheumatic mitral valve disorders | CPT/HCPCS: 85610 ==

== ENCOUNTER 2017-07-05 10:47 | Outpatient (CLI) | payer BC, MEDICARE | END 2017-07-05 10:48 | disposition home or self-care (01) | LOC: LAB.F 10:47 | PROVIDERS: ATTEND Physician Assistant | DX: I48.0 Paroxysmal atrial fibrillation (principal); I25.10 Atherosclerotic heart disease of native coronary artery without angina pectoris; I34.8 Other nonrheumatic mitral valve disorders | CPT/HCPCS: 85610 ==

== ENCOUNTER 2017-07-16 13:49 | Outpatient (CLI) | payer BC, MEDICARE | END 2017-07-16 13:50 | disposition home or self-care (01) | LOC: LAB.F 13:49 | PROVIDERS: ATTEND Physician Assistant | DX: I48.0 Paroxysmal atrial fibrillation (principal); I25.10 Atherosclerotic heart disease of native coronary artery without angina pectoris; I34.8 Other nonrheumatic mitral valve disorders | CPT/HCPCS: 85610 ==

== ENCOUNTER 2017-08-08 10:09 | Outpatient (CLI) | payer BC, MEDICARE | END 2017-08-08 10:10 | disposition home or self-care (01) | LOC: LAB.F 10:09 | PROVIDERS: ATTEND Physician Assistant | DX: Z53.9 Procedure and treatment not carried out, unspecified reason (principal) ==

== ENCOUNTER 2017-08-08 10:11 | Outpatient (CLI) | payer BC, MEDICARE | END 2017-08-08 10:12 | disposition home or self-care (01) | LOC: LAB.F 10:11 | PROVIDERS: ATTEND Physician Assistant | DX: I48.0 Paroxysmal atrial fibrillation (principal); I25.10 Atherosclerotic heart disease of native coronary artery without angina pectoris; I34.8 Other nonrheumatic mitral valve disorders | CPT/HCPCS: 85610 ==

== ENCOUNTER 2017-09-04 14:10 | Outpatient (CLI) | payer BC, MEDICARE | END 2017-09-04 14:11 | disposition home or self-care (01) | LOC: LAB.F 14:10 | PROVIDERS: ATTEND Physician Assistant | DX: I48.0 Paroxysmal atrial fibrillation (principal); I25.10 Atherosclerotic heart disease of native coronary artery without angina pectoris; I34.8 Other nonrheumatic mitral valve disorders | CPT/HCPCS: 85610 ==

== ENCOUNTER 2017-09-24 09:42 | Outpatient (CLI) | payer BC, MEDICARE | END 2017-09-24 09:43 | disposition home or self-care (01) | LOC: LAB.F 09:42 | PROVIDERS: ATTEND Physician Assistant | DX: I48.0 Paroxysmal atrial fibrillation (principal); I25.10 Atherosclerotic heart disease of native coronary artery without angina pectoris; I34.8 Other nonrheumatic mitral valve disorders | CPT/HCPCS: 85610 ==

== ENCOUNTER 2017-10-10 09:08 | Outpatient (CLI) | payer BC, MEDICARE | END 2017-10-10 09:09 | disposition home or self-care (01) | LOC: LAB.F 09:08 | PROVIDERS: ATTEND Physician Assistant | DX: I48.0 Paroxysmal atrial fibrillation (principal); I25.10 Atherosclerotic heart disease of native coronary artery without angina pectoris; I34.8 Other nonrheumatic mitral valve disorders | CPT/HCPCS: 85610 ==

== ENCOUNTER 2017-11-05 09:58 | Outpatient (CLI) | payer BC, MEDICARE | END 2017-11-05 09:59 | disposition home or self-care (01) | LOC: LAB.F 09:58 | PROVIDERS: ATTEND Physician Assistant | DX: I48.0 Paroxysmal atrial fibrillation (principal); I25.10 Atherosclerotic heart disease of native coronary artery without angina pectoris; I34.8 Other nonrheumatic mitral valve disorders | CPT/HCPCS: 85610 ==

== ENCOUNTER 2017-11-12 11:03 | Outpatient (CLI) | payer BC, MEDICARE | END 2017-11-12 11:04 | disposition home or self-care (01) | LOC: LAB.F 11:03 | PROVIDERS: ATTEND Physician Assistant | DX: I48.0 Paroxysmal atrial fibrillation (principal); I25.10 Atherosclerotic heart disease of native coronary artery without angina pectoris; I34.8 Other nonrheumatic mitral valve disorders | CPT/HCPCS: 85610 ==

== ENCOUNTER 2017-11-27 09:35 | Outpatient (CLI) | payer BC, MEDICARE | END 2017-11-27 09:36 | disposition home or self-care (01) | LOC: LAB.F 09:35 | PROVIDERS: ATTEND Physician Assistant | DX: I48.0 Paroxysmal atrial fibrillation (principal); I25.10 Atherosclerotic heart disease of native coronary artery without angina pectoris; I34.8 Other nonrheumatic mitral valve disorders | CPT/HCPCS: 85610 ==

== ENCOUNTER 2017-12-17 09:42 | Outpatient (CLI) | payer BC, MEDICARE | END 2017-12-17 09:43 | disposition home or self-care (01) | LOC: LAB.F 09:42 | PROVIDERS: ATTEND Physician Assistant | DX: I48.0 Paroxysmal atrial fibrillation (principal); I34.8 Other nonrheumatic mitral valve disorders; I25.10 Atherosclerotic heart disease of native coronary artery without angina pectoris | CPT/HCPCS: 85610 ==

== ENCOUNTER 2017-12-31 14:39 | Outpatient (CLI) | payer BC, MEDICARE | END 2017-12-31 14:40 | disposition home or self-care (01) | LOC: LAB.F 14:39 | PROVIDERS: ATTEND Physician Assistant | DX: I48.0 Paroxysmal atrial fibrillation (principal); I25.10 Atherosclerotic heart disease of native coronary artery without angina pectoris; I34.8 Other nonrheumatic mitral valve disorders | CPT/HCPCS: 85610 ==

== ENCOUNTER 2018-01-15 14:15 | Outpatient (CLI) | payer BC, MEDICARE | END 2018-01-15 14:16 | disposition home or self-care (01) | LOC: LAB.F 14:15 | PROVIDERS: ATTEND Physician Assistant | DX: I48.0 Paroxysmal atrial fibrillation (principal); I25.10 Atherosclerotic heart disease of native coronary artery without angina pectoris; I34.8 Other nonrheumatic mitral valve disorders | CPT/HCPCS: 85610 ==

== ENCOUNTER 2018-01-28 14:21 | Outpatient (CLI) | payer BC, MEDICARE ==
[2018-01-28 18:05] LABS: INR 1.7 (0.8-1.2); PT - PROTHROMBIN TIME 19.6 secs (9.9-12.6)
== END 2018-01-28 14:22 | disposition home or self-care (01) ==
LOC: LAB.F 14:21
PROVIDERS: ATTEND Physician Assistant
DX: I25.10 Atherosclerotic heart disease of native coronary artery without angina pectoris (principal); I48.0 Paroxysmal atrial fibrillation
CPT/HCPCS: 36415; 85610

== ENCOUNTER 2018-02-21 10:23 | Outpatient (CLI) | payer BC, MEDICARE | END 2018-02-21 10:24 | disposition home or self-care (01) | LOC: LAB.F 10:23 | PROVIDERS: ATTEND Physician Assistant | DX: I48.0 Paroxysmal atrial fibrillation (principal); I25.10 Atherosclerotic heart disease of native coronary artery without angina pectoris; I34.8 Other nonrheumatic mitral valve disorders | CPT/HCPCS: 85610 ==

== ENCOUNTER 2018-03-22 10:08 | Outpatient (CLI) | payer BC, MEDICARE | END 2018-03-22 10:09 | disposition home or self-care (01) | LOC: LAB.F 10:08 | PROVIDERS: ATTEND Physician Assistant | DX: I48.0 Paroxysmal atrial fibrillation (principal); I25.10 Atherosclerotic heart disease of native coronary artery without angina pectoris; I34.8 Other nonrheumatic mitral valve disorders | CPT/HCPCS: 85610 ==

== ENCOUNTER 2018-04-19 10:00 | Outpatient (CLI) | payer BC, MEDICARE | END 2018-04-19 10:01 | disposition home or self-care (01) | LOC: LAB.F 10:00 | PROVIDERS: ATTEND Physician Assistant | DX: I48.0 Paroxysmal atrial fibrillation (principal); I25.10 Atherosclerotic heart disease of native coronary artery without angina pectoris; I34.8 Other nonrheumatic mitral valve disorders | CPT/HCPCS: 85610 ==

== ENCOUNTER 2018-04-29 10:49 | Outpatient (CLI) | payer BC, MEDICARE | END 2018-04-29 10:50 | disposition home or self-care (01) | LOC: LAB.F 10:49 | PROVIDERS: ATTEND Physician Assistant | DX: I48.0 Paroxysmal atrial fibrillation (principal); I25.10 Atherosclerotic heart disease of native coronary artery without angina pectoris; I34.8 Other nonrheumatic mitral valve disorders | CPT/HCPCS: 85610 ==

== ENCOUNTER 2018-05-09 11:06 | Outpatient (CLI) | payer BC, MEDICARE | END 2018-05-09 11:07 | disposition home or self-care (01) | LOC: LAB.F 11:06 | PROVIDERS: ATTEND Physician Assistant | DX: I48.0 Paroxysmal atrial fibrillation (principal); I25.10 Atherosclerotic heart disease of native coronary artery without angina pectoris; I34.8 Other nonrheumatic mitral valve disorders | CPT/HCPCS: 85610 ==

== ENCOUNTER 2018-05-16 14:20 | Outpatient (CLI) | payer BC, MEDICARE | END 2018-05-16 14:21 | disposition home or self-care (01) | LOC: LAB.F 14:20 | PROVIDERS: ATTEND Physician Assistant | DX: I48.0 Paroxysmal atrial fibrillation (principal); I25.10 Atherosclerotic heart disease of native coronary artery without angina pectoris; I34.8 Other nonrheumatic mitral valve disorders | CPT/HCPCS: 85610 ==

== ENCOUNTER 2018-05-29 13:27 | Outpatient (CLI) | payer BC, MEDICARE ==
[2018-05-29 18:08] LABS: BASOPHILS % (AUTO) 0.3 %; EOSINOPHILS # (AUTO) 0.2 10^3/uL (0.0-0.7); EOSINOPHILS % (AUTO) 2.6 %; HGB - HEMOGLOBIN 13.6 g/dL (14.0-18.0); LYMPHOCYTES # (AUTO) 1.3 10^3/uL (1.5-3.5); LYMPHOCYTES % (AUTO) 19.5 %; MEAN CORPUSCULAR HEMOGLOBIN 35.4 pg (27.0-31.0); MEAN CORPUSCULAR HGB CONC 33.5 g/dL (32.0-36.0); MEAN CORPUSCULAR VOLUME 105.9 fL (80.0-94.0); MONOCYTES # (AUTO) 0.8 10^3/uL (0.0-1.0); MONOCYTES % (AUTO) 12.5 %; NEUTROPHILS # (AUTO) 4.3 10^3/uL (1.5-6.6); NEUTROPHILS % (AUTO) 65.1 %; PLT - PLATELET COUNT 213 10^3/uL (130-450); RED BLOOD COUNT 3.84 10^6/uL (4.70-6.10); RED CELL DISTRIBUTION WIDTH 14.6 % (12.0-15.0); WHITE BLOOD COUNT 6.6 x10^3/uL (4.8-10.8)
[2018-05-29 18:27] LABS: ALBUMIN 3.5 g/dL (3.2-5.5); ALBUMIN/GLOBULIN RATIO 1.3 (1.0-2.2); BILIRUBIN,TOTAL 0.9 mg/dL (0.2-1.0); CALCIUM 8.8 mg/dL (8.5-10.3); CREATININE 1.9 mg/dL (0.6-1.2); TOTAL PROTEIN 6.3 g/dL (6.7-8.2)
== END 2018-05-29 13:28 | disposition home or self-care (01) ==
LOC: LAB.F 13:27
PROVIDERS: ATTEND Internal Medicine Cardiovascular Disease
DX: I48.0 Paroxysmal atrial fibrillation (principal); I25.10 Atherosclerotic heart disease of native coronary artery without angina pectoris; I34.8 Other nonrheumatic mitral valve disorders
CPT/HCPCS: 36415; 80053; 85025; 85610